=== PATIENT | female | born 1945 | race Two or more races ===

== ENCOUNTER 2024-04-08 15:35 | Emergency (ER) | payer OTHER ==
[~2024-04-08] VITALS: Ht 149.9 cm; Wt 68.0 kg
[2024-04-08 15:45] VITALS: BP 151/71; O2SAT 97
[2024-04-08] MEDS ORDERED: PROTONIX40 MG (15:46)
[2024-04-08] MEDS ORDERED: AVAPRO75 MG (15:46)
[2024-04-08] MEDS ORDERED: PLAVIX75 MG (15:46)
[2024-04-08] MEDS ORDERED: ATORVASTATIN CA40 MG (15:47)
[2024-04-08] MEDS ORDERED: FAMOTIDINE/PF 20 MG/2 ML VIAL IV ONE (16:45)
[2024-04-08] MEDS ORDERED: MEPERIDINE HCL/PF 25 MG/ML VIAL IM ONE (16:45)
[2024-04-08 17:16] LABS: HEMATOCRIT 36.6 % (36.0-45.00); HEMOGLOBIN 12.3 g/dL (12.0-15.00); MEAN CELL VOLUME 86.3 fL (80.00-100.00); MEAN CORPUSCULAR HEMOGLOBIN 28.9 pg (27.00-32.0); MEAN CORPUSCULAR HGB CONC 33.5 g/dl (32.0-36.0); PLATELET COUNT 306 K/uL (150-450); RED BLOOD COUNT 4.24 M/uL (4.00-6.00)
[2024-04-08 17:56] LABS: INR 0.98; PARTIAL THROMBOPLASTIN TIME 25.6 SECONDS (22.0-34.0); PROTHROMBIN TIME 10.7 SECONDS (9.0-11.5)
[2024-04-08 18:03] LABS: CALCIUM 9.3 mg/dL (8.5-10.1); CREATININE SERUM 0.93 mg/dL (0.55-1.02); GFR 58.16; POTASSIUM 4.14 mEq/L (3.5-5.1)
[2024-04-08] MEDS ORDERED: CIPROFLOXACIN IN 5 % DEXTROSE 400 MG/200 ML PIGGYBAG IV ONE (23:45)
[2024-04-08] MEDS ORDERED: METRONIDAZOLE/SODIUM CHLORIDE 500 MG/100 ML PIGGYBACK IV ONE (23:45)
[2024-04-09] MEDS ORDERED: MEPERIDINE HCL/PF 25 MG/ML VIAL IM ONE (00:15)
== END 2024-04-09 04:13 | disposition home or self-care (01) ==
LOC: ER 15:35
PROVIDERS: Emergency Medicine
DX: R10.9 Unspecified abdominal pain (principal); Z88.6 Allergy status to analgesic agent
CPT/HCPCS: 36415; 74177; 96365; 96372; 99284; J0744; J3490 ×4; Q9965